=== PATIENT | female | born 1965 | race Caucasian/White ===

== ENCOUNTER → 2021-01-18 | Outpatient (CLI) | payer BC ==
[~2021-01-18] MED LIST: FLOMAX 0.4 MG0.4 MG PO; IBU800 MG PO; NORCO 7.5-3251 EACH PO; ZOFRAN ODT 4 MG4 MG SL
== END ==
LOC: RAD 15:41
DX: M51.34 Other intervertebral disc degeneration, thoracic region (principal)
CPT/HCPCS: 72072

== ENCOUNTER → 2021-05-07 | Outpatient (CLI) | payer BC | LOC: US 08:11 | DX: R01.1 Cardiac murmur, unspecified (principal); K76.0 Fatty (change of) liver, not elsewhere classified | CPT/HCPCS: ECHO; 76700; 93306 ==

== ENCOUNTER → 2021-07-15 | Outpatient (CLI) | payer BC | LOC: NM 12:43 | DX: R10.11 Right upper quadrant pain (principal) | CPT/HCPCS: 78227; A9537; J2805 ==

== ENCOUNTER → 2021-07-29 | Outpatient (CLI) | payer BC | LOC: CT 13:47 | DX: R10.13 Epigastric pain (principal); R10.11 Right upper quadrant pain; E11.9 Type 2 diabetes mellitus without complications; N20.0 Calculus of kidney | CPT/HCPCS: 36415; 74160; 82565; 84520; Q9967 ==